=== PATIENT | male | born 1950 | race Caucasian/White ===

== ENCOUNTER 2017-06-10 19:15 | Emergency (ER) | payer SELFPAY ==
[2017-06-10 19:23] VITALS: TEMP 98.2
--- NOTE | 2017-06-10 19:38 | EDPHY ---
HPI/HX/ROS/PE/MDM Narrative: CHIEF COMPLAINT: Left heel pain HPI: This is a 67-year-old male with a history of homelessness and chronic BLE edema who complains of left heel pain after tripping over a concrete block just prior to arrival. He denies other injury. He has been able to ambulate with some pain. REVIEW OF SYSTEMS: Aside from elements discussed in the HPI, a comprehensive 10-point review of systems was reviewed and is negative. PMH: Edema SOCIAL HISTORY: Homeless. PHYSICAL EXAM: General:Patient is alert, in no acute distress. Extremities: R foot: Chronic edema noted. Achilles tendon intact, non-tender. Tenderness to palpation present over posterior calcaneus. No crepitus. Neuro: Oriented x3. Normal motor function. Normal sensory function. ED Course: Study: X-ray of the left ankle Indication: ankle pain Results: X-ray of the left ankle was obtained. The results of the study are: normal The study was read by the radiologist, Dr. Aldridge. I viewed the images myself on the PACS system. - Data Points Imaging Results: Imaging Impressions Foot X-Ray 06/10/17 19:25 Impression: No evidence for acute fracture of the left ankle. Left Foot, 3 Views History: Pain and swelling after trauma. Findings: Degenerative change is seen in the first metatarsophalangeal joint. Enthesopathy is seen in the Achilles and plantar insertion of the calcaneus. No evidence for acute fracture or dislocation. No evidence for periarticular erosion. Impression: No evidence for acute osseous abnormality of the left foot. Ankle X-Ray 06/10/17 19:33 Impression: No evidence for acute fracture of the left ankle. Left Foot, 3 Views History: Pain and swelling after trauma. Findings: Degenerative change is seen in the first metatarsophalangeal joint. Enthesopathy is seen in the Achilles and plantar insertion of the calcaneus. No evidence for acute fracture or dislocation. No evidence for periarticular erosion. Impression: No evidence for acute osseous abnormality of the left foot. General Time Seen by Provider: 06/10/17 19:33 Initial Vital Signs: Initial Vital Signs Temperature (C) 36.8 C 06/10/17 19:17 Heart Rate 82 06/10/17 19:17 Respiratory Rate 18 06/10/17 19:17 Blood Pressure 183/99 H 06/10/17 19:17 O2 Sat (%) 95 06/10/17 19:17 O2 Delivery Mode Room Air Allergies/Adverse Reactions: No Known Allergies Allergy (Unverified 06/10/17 19:17) Home Medications: Medication Instructions Recorded NK [No Known Home Meds] 06/10/17 Departure - Departure Disposition: Home, Routine, Self-Care Clinical Impression: Heel pain Condition: Good Instructions: Heel Spur (ED) Additional Instructions: Rest, ice, elevation. Ibuprofen as directed. Referrals: NONE *PRIMARY CARE P,. [Primary Care Provider] - As per Instructions Report Scribed for: Trevor Art Report Scribed by: Fe Parsons Date of Report: 06/10/17 Time of Report: 19:38 Physician Review and Approval Statement: Portions of this note were transcribed by an ED scribe. I personally performed the history, physical exam, and medical decision making; and confirm the accuracy of the information in the transcribed note.
[2017-06-10] MEDS ORDERED: IBUPROFEN 600 MG TAB PO ONE ×2 (20:27→20:28)
[2017-06-10 20:40] VITALS: BP 174/95; PULSE 86; RESP 16; O2SAT 94
== END 2017-06-10 20:39 | disposition home or self-care (01) ==
DX: M79.605 Pain in left leg (principal)

== ENCOUNTER 2018-10-31 23:28 | Inpatient (IN) | payer OTHER ==
--- NOTE | 2018-10-31 23:37 | EDPHY ---
H & P Stated Complaint: Shortness of breath Time Seen by Provider: 10/31/18 23:32 HPI/ROS: HPI The patient presents with shortness of breath which has been present for the last 1 week and has been getting progressively worse, he is brought in by ambulance from outside of a grocery store. The patient has become so short of breath that now he cannot walk any distance because of his shortness of breath. He has not had a cough. He says that his mouth is very dry and this is making him short of breath. He has longstanding history of lower extremity edema, however he says for the last 2 weeks his left leg has been more red and swollen than usual. He notices that it is quite warm. He reports a mild amount of pain. He has not had any fevers or chills. He denies any injury of his leg. He also says for the last 2 or 3 days he has been incontinent of urine and is having a hard time making it to the bathroom. REVIEW OF SYSTEMS 10 systems were reviewed and negative with the exception of the elements mentioned in the history of present illness. 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 PHYSICAL General Appearance: Alert, no distress Eyes: Pupils equal and round no pallor or injection ENT, Mouth: Mucous membranes moist, posterior pharynx is diffusely erythematous without exudates Respiratory: There are no retractions, lungs are clear to auscultation, no wheezes heard Cardiovascular: Regular rate and rhythm Gastrointestinal: Abdomen is soft and non-tender, no masses, bowel sounds normal : Scrotum is enlarged, erythematous and excoriated Neurological: A&O, moves all extremities Skin: Warm and dry, no rashes Musculoskeletal: Neck is supple non tender Extremities: Left lower extremity is largely edematous throughout, erythematous , most significantly in his foot, heel, distal lower leg with patchy areas of erythema more proximally which extend all the way to his proximal thigh, right lower extremity is very edematous Psychiatric: Patient is oriented X 3, there is no agitation Source: Patient, EMS Exam Limitations: No limitations - Personal History Tetanus Vaccine Date: LESS THAN 10 YEARS - Medical/Surgical History Hx Asthma: No Hx Chronic Respiratory Disease: No Hx Diabetes: No Hx Cardiac Disease: No Hx Renal Disease: No Hx Cirrhosis: No Hx Alcoholism: No Hx HIV/AIDS: No Hx Splenectomy or Spleen Trauma: No Other PMH: DENIES - Social History Smoking Status: Never smoked Constitutional: Initial Vital Signs Temperature (C) 37.1 C 11/01/18 00:05 Heart Rate 85 11/01/18 00:05 Respiratory Rate 20 11/01/18 00:05 Blood Pressure 150/80 H 11/01/18 00:05 O2 Sat (%) 95 11/01/18 00:05 O2 Delivery Mode Nasal Cannula O2 (L/minute) 2 Allergies/Adverse Reactions: No Known Allergies Allergy (Unverified 11/01/18 00:05) Home Medications: Medication Instructions Recorded NK [No Known Home Meds] 06/10/17 Medical Decision Making - Diagnostics EKG Interpretation: EKG: Complete interpretation has been separately recorded in the [email or web address] archive. 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 Calcified subcarinal lymphadenopathy consistent with sequelae of old granulomatous disease, no pulmonary embolism, interpreted by direct Radiology. Chest x-ray two view shows no pulmonary edema, no cardiomegaly, no infiltrate, interpreted by me, radiology interpretation pending. Imaging: I viewed and interpreted images myself Differential Diagnosis: This is a 68-year-old man who is homeless with no significant past medical history except for lower extremity edema which he says he has had for the last 2 years which he attributes to his homelessness and being on his feet, brought in by ambulance for shortness of breath which is progressive for the last 1 week which is described as dyspnea on exertion. Now, the patient can only walk a few steps before he is short of breath. He usually uses crutches because of his extremity edema. Here, his vital signs are normal, he is tachypneic though not hypoxic, lungs sound clear, he does have a largely edematous left lower extremity which is warm and erythematous. Because of his shortness of breath and unilateral leg symptoms, I am concerned for pulmonary embolism. Patient had normal chest x-ray an EKG. D-dimer was very positive at 7. He does have a leukocytosis, hyponatremia. He underwent CT angiogram of his chest which was unremarkable for pulmonary embolism. Thus I suspect his symptoms are coming from infectious process of his left lower extremity which appears to be a diffuse and fairly extensive circumferential cellulitis. This could have led to fatigue causing his shortness of breath. Plan for treatment here with antibiotics. He does not have a fever or tachycardia, thus I do not believe he has sepsis. I have consulted with Dr. Jean-Baptiste of the hospitalist service who will admit the patient for further care. The patient may need further imaging of his extremity, however given he received contrast for CT angio I will not perform CT of his leg with contrast at this time. This can be performed during his hospitalization. - Data Points Laboratory Results: Laboratory Results 10/31/18 23:35 10/31/18 23:35 11/01/18 10/31/18 10/31/18 02:00 23:49 23:35 WBC RBC Hgb Hct MCV MCH MCHC RDW Plt Count MPV Neut % (Auto) Lymph % (Auto) [place] % (Auto) Eos % (Auto) Baso % (Auto) Nucleat RBC Rel Count Absolute Neuts (auto) Absolute Lymphs (auto) Absolute Monos (auto) Absolute Eos (auto) Absolute Basos (auto) Absolute Nucleated RBC Immature Gran % Seg Neutrophils % Band Neutrophils % Lymphocytes % Monocytes % Eosinophils % Basophils % Metamyelocytes % Myelocytes % Promyelocytes % Blast Cells % Immature Gran # Absolute Seg Neuts Absolute Band Neuts Absolute Lymphocytes Absolute Monocytes Absolute Eosinophils Absolute Basophils Absolute Metamyelocyte Absolute Myelocytes Absolute Promyelocytes Absolute Plasma Cells Nucleated RBCs Absolute Blast Cells Plasma Cells % Toxic Granulation Toxic Vacuolation Dohle Bodies Platelet Estimate D-Dimer Sodium 129 mEq/L L mEq/L (135-145) Potassium 3.4 mEq/L L mEq/L (3.5-5.2) Chloride 93 mEq/L L mEq/L (97-110) Carbon Dioxide 22 mEq/l mEq/l (22-31) Anion Gap 14 mEq/L mEq/L (6-14) BUN 28 mg/dL H mg/dL (7-23) Creatinine 1.3 mg/dL mg/dL (0.7-1.3) Estimated GFR 55 Glucose 135 mg/dL H mg/dL (70-100) Serum Osmolality 276 mosmo/kg L mosmo/kg (280-297) Calcium 7.9 mg/dL L mg/dL (8.5-10.4) POC Troponin I 0.01 ng/mL ng/mL (0.00-0.08) NT-Pro-B Natriuret Pep 190 pg/mL H pg/mL (0-125) 10/31/18 10/31/18 23:35 23:35 WBC 22.18 10^3/uL H 10^3/uL (3.80-9.50) RBC 4.83 10^6/uL 10^6/uL (4.40-6.38) Hgb 13.8 g/dL g/dL (13.7-17.5) Hct 39.5 % L % (40.0-51.0) MCV 81.8 fL fL (81.5-99.8) MCH 28.6 pg pg (27.9-34.1) MCHC 34.9 g/dL g/dL (32.4-36.7) RDW 13.4 % % (11.5-15.2) Plt Count 245 10^3/uL 10^3/uL (150-400) MPV 11.2 fL fL (8.7-11.7) Neut % (Auto) Not Reported Lymph % (Auto) Not Reported [place] % (Auto) Not Reported Eos % (Auto) Not Reported Baso % (Auto) Not Reported Nucleat RBC Rel Count Not Reported Absolute Neuts (auto) Not Reported Absolute Lymphs (auto) Not Reported Absolute Monos (auto) Not Reported Absolute Eos (auto) Not Reported Absolute Basos (auto) Not Reported Absolute Nucleated RBC Not Reported Immature Gran % Not Reported Seg Neutrophils % 94.0 % % Band Neutrophils % 0.0 % % Lymphocytes % 0.0 % % Monocytes % 6.0 % % Eosinophils % 0.0 % % Basophils % 0.0 % % Metamyelocytes % 0.0 % % Myelocytes % 0.0 % % Promyelocytes % 0.0 % % Blast Cells % 0.0 % % Immature Gran # Not Reported Absolute Seg Neuts 20.85 10^3/uL H 10^3/uL (1.70-6.50) Absolute Band Neuts 0.00 10^3/uL 10^3/uL (0.00-0.70) Absolute Lymphocytes 0.00 10^3/uL L 10^3/uL (1.00-3.00) Absolute Monocytes 1.33 10^3/uL H 10^3/uL (0.30-0.80) Absolute Eosinophils 0.00 10^3/uL L 10^3/uL (0.03-0.40) Absolute Basophils 0.00 10^3/uL L 10^3/uL (0.02-0.10) Absolute Metamyelocyte 0.00 10^3/mL 10^3/mL (0.00-0.00) Absolute Myelocytes 0.00 10^3/mL 10^3/mL (0.00-0.00) Absolute Promyelocytes 0.00 10^3/uL 10^3/uL (0.00-0.00) Absolute Plasma Cells 0.00 10^3/uL 10^3/uL (0.00-0.00) Nucleated RBCs 0 /100 WBC /100 WBC (0-0) Absolute Blast Cells 0.00 10^3/uL 10^3/uL (0.00-0.00) Plasma Cells % 0.0 % % Toxic Granulation PRESENT H Toxic Vacuolation PRESENT H Dohle Bodies PRESENT H Platelet Estimate ADEQUATE (ADEQ) D-Dimer 7.95 ug/mLFEU H ug/mLFEU (0.00-0.50) Sodium Potassium Chloride Carbon Dioxide Anion Gap BUN Creatinine Estimated GFR Glucose Serum Osmolality Calcium POC Troponin I NT-Pro-B Natriuret Pep Medications Given: Discontinued Medications Ceftriaxone Sodium/Dextrose (Rocephin 1 Gm (Premix)) 50 mls @ 100 mls/hr IV EDNOW ONE PRN Reason: Protocol Stop: 11/01/18 02:24 Last Admin: 11/01/18 02:10 Dose: 50 mls Sodium Chloride (Ns) 500 mls @ 1,000 mls/hr IV EDNOW ONE PRN Reason: Protocol Stop: 11/01/18 02:24 Last Admin: 11/01/18 02:08 Dose: 500 mls Potassium Chloride (Klor-Con) 40 meq PO ONCE ONE Stop: 11/01/18 02:44 Last Admin: 11/01/18 03:56 Dose: 40 meq Point of Care Test Results: Chemistry 10/31/18 23:49 POC Troponin I 0.01 ng/mL ng/mL (0.00-0.08) Departure - Departure Disposition: [facility] Clinical Impression: Cellulitis and abscess of left leg, Hyponatremia, Lower extremity edema, Homelessness Leukocytosis Qualifiers: Leukocytosis type: unspecified Qualified Code(s): D72.829 - Elevated white blood cell count, unspecified Condition: Fair
[2018-10-31 23:45] LABS: PLATELET COUNT 245 10^3/uL (150-400)
[2018-11-01] MEDS ORDERED: IOPAMIDOL (ISOVUE 370) 100 ML BTL IV ONE (00:25)
[2018-11-01] MEDS ORDERED: NS 500 ML IV ONE (01:55)
[2018-11-01] MEDS ORDERED: ACETAMINOPHEN 325 MG TAB PO PRN (02:20)
[2018-11-01] MEDS ORDERED: ONDANSETRON 4 MG/2 ML VIAL IVP PRN (02:20)
[2018-11-01] MEDS ORDERED: ONDANSETRON DISINTEGRATING 4 MG TAB PO PRN (02:20)
--- NOTE | 2018-11-01 02:35 | PDGENHP ---
History and Physical - Chief Complaint LLE redness - History of Present Illness 68 yo M w/ hx of chronic LE swelling presents with LLE redness. The patient tells me it has been progressively red for 2 weeks. It has also become hot and painful. Over the last day he has also felt somewhat short of breath. He denies medical problems aside from LE swelling. He does not take any medications. He is homeless and sleeps outside. His work-up in the ED is notable for leukocytosis. A CTPE was performed due to elevated D-dimer but this was negative for pulmonary disease. He is not displaying sepsis physiology at this time. He is being admitted for IV antibiotics. Case discussed with ED physician Dr. Hagan; records reviewed and summarized above. History Information - Allergies/Home Medication List Allergies/Adverse Reactions: No Known Allergies Allergy (Unverified 11/01/18 00:05) Home Medications: NK [No Known Home Meds] 06/10/17 [Last Taken Unknown] I have personally reviewed and updated: family history, medical history - Past Medical History Additional medical history: Chronic leg swelling - Surgical History Reports: no pertinent surgical hx - Family History Positive for: diabetes type II - Social History Smoking Status: Never smoked Review of Systems Review of Systems: ROS: 10pt was reviewed & negative except for what was stated in HPI & below Physical Exam Physical Exam: Temp Pulse Resp BP Pulse Ox 37.1 C 80 20 135/74 H 97 11/01/18 00:05 11/01/18 02:20 11/01/18 00:50 11/01/18 02:20 11/01/18 02:20 O2 (L/minute) 2 Constitutional: obese, unkempt Eyes: PERRL, anicteric sclera Ears, Nose, Mouth, Throat: moist mucous membranes, ears appear normal Cardiovascular: regular rate and rhythym, no murmur, rub, or gallop, edema ( Bilateral, 3+) Respiratory: no respiratory distress, clear to auscultation Gastrointestinal: normoactive bowel sounds, soft, non-tender abdomen Skin: erythema (LLE), other (Hot, tender LLE, onychomycotic nails) Musculoskeletal: full muscle strength, muscular tenderness (LLE) Neurologic: AAOx3, CN II-XII Intact Psychiatric: interacting appropriately, not anxious Lab Data & Imaging Review 10/31/18 23:35 10/31/18 23:35 WBC 22.18 10^3/uL (3.80-9.50) H 10/31/18 23:35 RBC 4.83 10^6/uL (4.40-6.38) 10/31/18 23:35 Hgb 13.8 g/dL (13.7-17.5) 10/31/18 23:35 Hct 39.5 % (40.0-51.0) L 10/31/18 23:35 MCV 81.8 fL (81.5-99.8) 10/31/18 23:35 MCH 28.6 pg (27.9-34.1) 10/31/18 23:35 MCHC 34.9 g/dL (32.4-36.7) 10/31/18 23:35 RDW 13.4 % (11.5-15.2) 10/31/18 23:35 Plt Count 245 10^3/uL (150-400) 10/31/18 23:35 MPV 11.2 fL (8.7-11.7) 10/31/18 23:35 Neut % (Auto) Not Reported 10/31/18 23:35 Lymph % (Auto) Not Reported 10/31/18 23:35 [place] % (Auto) Not Reported 10/31/18 23:35 Eos % (Auto) Not Reported 10/31/18 23:35 Baso % (Auto) Not Reported 10/31/18 23:35 Nucleat RBC Rel Count Not Reported 10/31/18 23:35 Absolute Neuts (auto) Not Reported 10/31/18 23:35 Absolute Lymphs (auto) Not Reported 10/31/18 23:35 Absolute Monos (auto) Not Reported 10/31/18 23:35 Absolute Eos (auto) Not Reported 10/31/18 23:35 Absolute Basos (auto) Not Reported 10/31/18 23:35 Absolute Nucleated RBC Not Reported 10/31/18 23:35 Immature Gran % Not Reported 10/31/18 23:35 Seg Neutrophils % 94.0 % 10/31/18 23:35 Band Neutrophils % 0.0 % 10/31/18 23:35 Lymphocytes % 0.0 % 10/31/18 23:35 Monocytes % 6.0 % 10/31/18 23:35 Eosinophils % 0.0 % 10/31/18 23:35 Basophils % 0.0 % 10/31/18 23:35 Metamyelocytes % 0.0 % 10/31/18 23:35 Myelocytes % 0.0 % 10/31/18 23:35 Promyelocytes % 0.0 % 10/31/18 23:35 Blast Cells % 0.0 % 10/31/18 23:35 Immature Gran # Not Reported 10/31/18 23:35 Absolute Seg Neuts 20.85 10^3/uL (1.70-6.50) H 10/31/18 23:35 Absolute Band Neuts 0.00 10^3/uL (0.00-0.70) 10/31/18 23:35 Absolute Lymphocytes 0.00 10^3/uL (1.00-3.00) L 10/31/18 23:35 Absolute Monocytes 1.33 10^3/uL (0.30-0.80) H 10/31/18:35 Absolute Eosinophils 0.00 10^3/uL (0.03-0.40) L 10/31/18 23:35 Absolute Basophils 0.00 10^3/uL (0.02-0.10) L 10/31/18 23:35 Absolute Metamyelocyte 0.00 10^3/mL (0.00-0.00) 10/31/18 23:35 Absolute Myelocytes 0.00 10^3/mL (0.00-0.00) 10/31/18: Absolute Promyelocytes 0.00 10^3/uL (0.00-0.00) 10/31/18: Absolute Plasma Cells 0.00 10^3/uL (0.00-0.00) 10/31/18 23:35 Nucleated RBCs 0 /100 WBC (0-0) 10/31/18:35 Absolute Blast Cells 0.00 10^3/uL (0.00-0.00) 10/31/18:35 Plasma Cells % 0.0 % 10/31/18 23:35 Toxic Granulation PRESENT H 10/31/18 23:35 Toxic Vacuolation PRESENT H 10/31/18 23:35 Dohle Bodies PRESENT H 10/31/18 23:35 Platelet Estimate ADEQUATE (ADEQ) 10/31/18 23:35 D-Dimer 7.95 ug/mLFEU (0.00-0.50) H 10/31/18 23:35 Sodium 129 mEq/L (135-145) L 10/31/18 23:35 Potassium 3.4 mEq/L (3.5-5.2) L 10/31/18 23:35 Chloride 93 mEq/L (97-110) L 10/31/18 23:35 Carbon Dioxide 22 mEq/l (22-31) 10/31/18 23:35 Anion Gap 14 mEq/L (6-14) 10/31/18 23:35 BUN 28 mg/dL (7-23) H 10/31/18 23:35 Creatinine 1.3 mg/dL (0.7-1.3) 10/31/18 23:35 Estimated GFR 55 10/31/18 23:35 Glucose 135 mg/dL (70-100) H 10/31/18 23:35 Calcium 7.9 mg/dL (8.5-10.4) L 10/31/18 23:35 POC Troponin I 0.01 ng/mL (0.00-0.08) 10/31/18 23:49 NT-Pro-B Natriuret Pep 190 pg/mL (0-125) H 10/31/18 23:35 Assessment & Plan Assessment: 68 yo M w/ hx of chronic leg swelling presents with LLE cellulitis. Plan: 1. LLE cellulitis - I suspect this may have originated from onychomycotic nails ; I do not see a discrete wound. WBC of 22 on admission but no additional evidence of sepsis physiology. - Cefazolin 2 g IV q8h - Blood cultures ordered - Wound care consult - Elevate extremity as able 2. Chronic LE swelling - Patient tells me this has been present for 2 years. Normal heart size on imaging and BNP of 194 not suggestive of heart failure. - Will benefit from diuretics but will hold off initially noting acute infection 3. Scrotal erythema - Likely due to poor hygiene and occasional urinary incontinence. - Wound care consult placed 4. Hyponatremia - 129 on admission, possibly related to infection. - S/p NS bolus - Will check Osms, Mervat - Repeat BMP in the morning 5. Hypokalemia - Replete PRN Diet - Regular Code - Full Ppx - LMWH Dispo - Admit under observation status
[2018-11-01] MEDS ORDERED: POTASSIUM CL 20 MEQ TAB PO ONE (02:43)
[2018-11-01] MEDS: ceFAZolin 2 GM/DEXTROSE 100 ML IV SCH ×3 (05:23→21:53)
--- NOTE | 2018-11-01 06:36 | CPEKG ---
Test Reason : OPEN Blood Pressure : / mmHG Vent. Rate : 082 BPM Atrial Rate : 082 BPM P-R Int : 163 ms QRS Dur : 107 ms QT Int : 402 ms P-R-T Axes : 059 065 009 degrees QTc Int : 470 ms Sinus rhythm Confirmed by Jody Hagan ([id number]) on 11/01/2018 6:35:55 AM Referred By: Jody Hagan Confirmed By:Jody Hagan
[2018-11-01 09:29] LABS: PLATELET COUNT 240 10^3/uL (150-400)
[2018-11-01] MEDS: ENOXAPARIN 40 MG/0.4 ML SYR SC SCH (09:58)
--- NOTE | 2018-11-01 11:48 | ASMTCMCOM ---
CM Note CM Note Notes: CM met w/ pt and introduced self. Pt is a 68 y/o man admitted for left leg cellulitis. CM discussed case w/ Delilah Yepez NP. Pt reported that he has been homeless since 2014. He stayed in the custodial the first year he was homeless. 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 Pt reports that he sleeps outside and stays near the [facility] on [address]. Pt reports that he is a 'cisgendered male' that doesn't have any mental illness, disability or medical conditions prior to this incident. Pt doesn't plan on working / [facility] case management to find housing. Pt reported that it could take up to 10 years to find housing. CM can assist in making him a PCP follow up once he is closer to d/c. Pt is currently on ivabx. PT has been ordered and awaiting recommendations. Wound care is consulting. Needs are TBD at this time. CM to follow. Plan: TBD Date Signed: 11/01/2018 11:47 AM Electronically Signed By:ERASMO Borrego
--- NOTE | 2018-11-01 14:10 | HOSPPROG ---
Hospitalist Progress Note Assessment/Plan: 68 yo M w/ hx of chronic leg swelling presents with LLE cellulitis. Plan: 1. LLE cellulitis - WBC of 22 on admission but no additional evidence of sepsis physiology. - Cefazolin 2 g IV q8h - Blood cultures pending - Wound care consult - Elevate extremity as able 2. Chronic LE swelling - Normal heart size on imaging and BNP of 194 not suggestive of heart failure. - Will benefit from diuretics 3. Scrotal erythema - Likely due to poor hygiene and occasional urinary incontinence. - Wound care consult placed 4. Hyponatremia - 129 on admission, possibly related to infection. - S/p NS bolus - Will check Osms, Mervat - Repeat BMP in the morning 5. Hypokalemia - Replete PRN 6. Fever -supportive care -BC pending Diet - Regular Code - Full Ppx - LMWH Dispo - Admit under observation status Subjective: Feels tired. Ill. No new issues. Objective: Vital Signs Temp Pulse Resp BP Pulse Ox 37.4 C 80 24 H 130/71 H 93 11/01/18 11:11 11/01/18 11:11 11/01/18 11:11 11/01/18 11:11 11/01/18 11:11 Laboratory Results 11/01/18 09:11 11/01/18 09:11 10/31/18 11/01/18 11/02/18 05:59 05:59 05:59 Intake Total 400 Output Total 200 Balance 200 - Physical Exam Constitutional: chronically ill appearing, obese, uncomfortable Eyes: PERRL, anicteric sclera, EOMI Ears, Nose, Mouth, Throat: moist mucous membranes, hearing normal, ears appear normal Cardiovascular: regular rate and rhythym, edema, No JVD Respiratory: no respiratory distress, no rales or rhonchi, reduced air movement Gastrointestinal: normoactive bowel sounds, No tenderness, No ascites Skin: warm, erythema, fluctuance Musculoskeletal: normal joint ROM, no joint effusions, generalized weakness Neurologic: AAOx3 Psychiatric: not anxious, not encephalopathic, poor insight ICD10 Worksheet Patient Problems: Problems Problem Status Onset Cellulitis and abscess of left leg Acute Leukocytosis Acute Hyponatremia Acute Lower extremity edema Acute Homelessness Acute
--- NOTE | 2018-11-01 16:00 | WOCRNPDOC ---
WOCRN Advanced Assessment Note - Skin Integrity Problem, Advanced Assess Scrotum Dressing Type: Open to Air Closure Description: Approximated Eliud Wound Tissue: Erythema, Intact Wound Bed Color: Red Skin Integrity Problem Comment: Initial wound care consult sited scrotal drainage but skin, although red, appears to be intact. It appears that the moisture is coming from [id number]-xu-hald contact between the scrotum and bilateral upper thighs. Area cleaned with eliud-wipes by MINDA Davis and intradry sheets inserted bilaterally. An additional 2 intradry sheets placed in the patient's lock box in the room. Left Lower Leg Dressing Type: Open to Air, Other Other Dressing Type: chux absorbant pad Closure Description: Not Approximated Exudate Amount: Excessive Exudate Color: Clear, Yellow Exudate Characteristic(s): Serous Integumentary Issue Intervention: Dressing Applied, Dressing Initialed & Dated Elidu Wound Tissue: Erythema, Swollen, Weeping, Hemosiderin Staining, Taught Eliud Wound Swelling: Severe Skin Integrity Problem Comment: Patient here currently with cellulitis. Left leg extremely swollen and elevated on pillows. There is a large, nearly circumferential blister on the distal portion of the lower leg. A smaller blister on the posterior, distal left leg has a small opening and is draining serous fluid. Nursing has been capturing it on a chux pad until my visit. Small opening cleaned with NS and gauze. Large Exudry pad wrapped around distal portion of lower leg and wrapped with 2 Kerlix wraps. Anticipate that with antibiotics, swelling and drainage will decrease significantly. Patient would also benefit from a podiatry consult, or follow-up on an outpatient basis as the toenails on his left foot are long and growing back into the skin. Wound care will round early next week to reevaluate left lower leg.
[2018-11-01] MEDS ORDERED: NS 1,000 ML IV ONE (19:00)
[2018-11-02] MEDS: ceFAZolin 2 GM/DEXTROSE 100 ML IV SCH ×3 (05:54→22:03)
[2018-11-02] MEDS: ENOXAPARIN 40 MG/0.4 ML SYR SC SCH (08:26)
[2018-11-02] MEDS: FUROSEMIDE 20 MG/2 ML VIAL IVP SCH (08:27)
--- NOTE | 2018-11-02 10:25 | HOSPPROG ---
Hospitalist Progress Note Assessment/Plan: 68 yo M w/ hx of chronic leg swelling presents with LLE cellulitis. Plan: 1. LLE cellulitis - WBC of 22 on admission but no additional evidence of sepsis physiology. - Cefazolin 2 g IV q8h - Blood cultures NGTD - Wound care appreciated - Elevate extremity as able 2. Chronic LE swelling - Normal heart size on imaging and BNP of 194 not suggestive of heart failure. - Will benefit from diuretics -20mg IV lasix daily, will need to transition to PO 3. Scrotal erythema - Likely due to poor hygiene and occasional urinary incontinence. - Wound care consult placed 4. Hyponatremia - 129 on admission, possibly related to infection. - S/p NS bolus - Will check Osms, Mervat - Repeat BMP in the morning 5. Hypokalemia - Replete PRN 6. Fever -supportive care Diet - Regular Code - Full Ppx - LMWH Dispo - Change to inpt status requires cont IV abx and supportive care Subjective: Still not feeling well. Better then yesterday. Leg very painful whne standing up. Objective: Vital Signs Temp Pulse Resp BP Pulse Ox 36.9 C 78 18 131/64 H 93 11/02/18 06:53 11/02/18 06:53 11/02/18 06:53 11/02/18 06:53 11/02/18 06:53 Laboratory Results 11/01/18 09:11 11/01/18 09:11 11/01/18 11/02/18 11/03/18 05:59 05:59 05:59 Intake Total 400 200 Output Total 200 175 775 Balance 200 -265 -145 - Physical Exam Constitutional: appears nourished, chronically ill appearing, obese Eyes: PERRL, anicteric sclera, EOMI Ears, Nose, Mouth, Throat: moist mucous membranes, hearing normal, ears appear normal Cardiovascular: tachycardia, edema, No JVD Respiratory: no respiratory distress, no rales or rhonchi, reduced air movement Gastrointestinal: normoactive bowel sounds, No tenderness, No ascites Skin: warm, abrasion, erythema Musculoskeletal: no joint effusions, pain with ROM, generalized weakness Neurologic: AAOx3 Psychiatric: interacting appropriately, not anxious, not encephalopathic ICD10 Worksheet Patient Problems: Problems Problem Status Onset Cellulitis and abscess of left leg Acute Leukocytosis Acute Hyponatremia Acute Lower extremity edema Acute Homelessness Acute
--- NOTE | 2018-11-02 12:25 | PDMN ---
Medical Necessity Medical necessity: Change to IP, as of 11/02/18, per [employer] & MCG; los >2 mn for ongoing management of LLE cellulitis w/LE swelling, scrotal erythema & electrolyte abnormalities; requiring further monitoring, follow-up labs, IV abx , IV Lasix & Wound Care consult
[2018-11-03] MEDS: ceFAZolin 2 GM/DEXTROSE 100 ML IV SCH ×3 (05:43→21:35)
[2018-11-03] MEDS: ENOXAPARIN 40 MG/0.4 ML SYR SC SCH (09:31)
[2018-11-03] MEDS: FUROSEMIDE 20 MG/2 ML VIAL IVP SCH (09:32)
--- NOTE | 2018-11-03 09:56 | HOSPPROG ---
Hospitalist Progress Note Assessment/Plan: 68 yo M w/ hx of chronic leg swelling presents with LLE cellulitis. Plan: 1. LLE cellulitis - improvement - WBC of 22, now up to 31? no additional evidence of sepsis physiology. - Cefazolin 2 g IV q8h - Blood cultures NGTD - Wound care appreciated - Elevate extremity as able 2. Chronic LE swelling - Normal heart size on imaging and BNP of 194 not suggestive of heart failure. - Will benefit from diuretics -20mg IV lasix daily, will need to transition to PO 3. Scrotal erythema - Likely due to poor hygiene and occasional urinary incontinence. - Wound care consult placed - improving 4. Hyponatremia - 129 on admission, resolved possibly related to infection. - S/p NS bolus 5. Hypokalemia - Replete PRN 6. Fever -supportive care -resolved 7. Leukocytosis -increased WBC -? recheck labs in am -afebrile, improving -etiol? consider ID consult 8. Toe nails -podiatry consult needed Diet - Regular Code - Full Ppx - LMWH Dispo - Change to inpt status requires cont IV abx and supportive care Subjective: Up in chair. Feeling better. Thought process better. Objective: Vital Signs Temp Pulse Resp BP Pulse Ox 37.1 C 68 18 104/60 95 11/03/18 07:26 11/03/18 07:26 11/03/18 07:26 11/03/18 07:26 11/03/18 07:26 Laboratory Results 11/03/18 08:20 11/03/18 08:20 11/02/18 11/03/18 11/04/18 05:59 05:59 05:59 Intake Total 300 Output Total 1450 250 Balance -1150 -250 - Physical Exam Constitutional: appears nourished, chronically ill appearing, obese Eyes: PERRL, anicteric sclera Ears, Nose, Mouth, Throat: moist mucous membranes, hearing normal Cardiovascular: edema, No JVD Respiratory: no respiratory distress, reduced air movement Gastrointestinal: No tenderness, No ascites Skin: warm, abrasion, erythema Musculoskeletal: normal joint ROM, no joint effusions, generalized weakness Neurologic: AAOx3 Psychiatric: interacting appropriately, not anxious, not encephalopathic ICD10 Worksheet Patient Problems: Problems Problem Status Onset Cellulitis and abscess of left leg Acute Leukocytosis Acute Hyponatremia Acute Lower extremity edema Acute Homelessness Acute
[2018-11-03] MEDS: oxyCODONE IR 5 MG TAB PO PRN ×2 (11:35→17:58)
--- NOTE | 2018-11-03 15:59 | ASMTCMCOM ---
CM Note CM Note Notes: CM discussed case with hospitalist and RN, patient likely to be here for a little while and is receiving IV antibiotic treatment. PT recommending SNF Rehab, OT pending. CM spoke with patient, he does not have history working with a facility in the past. He denies any mental health diagnoses and is open to staying the minimum for SNF if it continues to be recommended at discharge. Patient shares he was living a good life, had a good routine and relationships prior to this infection. Nish shares he needs help with getting an ID, he was with the [facility] but shares they changed the system and can no longer get his mail there. He does receive $771.00 through SSI. Patient asks for confirmation that he has Medicare/Medicaid coverage prior to attempting placement, CM sent email/referral to [facility] with [facility]. CM to follow. D/C Plan: TBD Date Signed: 11/03/2018 03:58 PM Electronically Signed By:Sophie Payne
[2018-11-04] MEDS: ceFAZolin 2 GM/DEXTROSE 100 ML IV SCH ×3 (05:43→21:40)
--- NOTE | 2018-11-04 08:01 | WOCRNPDOC ---
WOCRN Advanced Assessment Note - Skin Integrity Problem, Advanced Assess Left Lower Leg Dressing Type: Super Absorbant Dressing Description: Clean/Dry, Intact Exudate Amount: Moderate Exudate Color: Clear, Yellow Exudate Characteristic(s): Serous Integumentary Issue Intervention: Visualized Under Dressing Cee Wound Tissue: Erythema, Erythema Marked by Wound supervisor mold shop Bed Constitution: De-roofed Serous Blister, Draining Serous Blister Skin Integrity Problem Comment: Large blister on lateral lower leg that has partially deroofed. Will update orders to Q2D changes to preserve remainder of roof, though it likely will not reattach at this time. Roof may need to be mechanically debrided in the next couple of days if it does not readhere. Wound care will follow.
[2018-11-04] MEDS: FUROSEMIDE 20 MG/2 ML VIAL IVP SCH (08:11)
[2018-11-04] MEDS: ENOXAPARIN 40 MG/0.4 ML SYR SC SCH (08:11)
--- NOTE | 2018-11-04 08:29 | HOSPPROG ---
Hospitalist Progress Note Assessment/Plan: Patient is a 68-year-old male with a history of chronic lower extremity swelling. He presented the emergency room with progressively redness to his left lower extremity for 2 weeks. 1st encounter chart reviewed * left lower extremity cellulitis -wound care is seeing the patient -on cephazolin 2 g IV Q 8 hr -blood cultures showed no growth -white blood cell count trending down * fevers with associated leukocytosis -no recent fever * chronic lower extremity swelling -on IV Lasix -quite severe in his left leg -will get an echo to reivew * scrotal erythema and redness -due to poor hygiene * hyponatremia -Na 131 -will follow * hypokalemia -mild *enlarged liver -reviewed CT scan w Dr Rowell -will check LFT's *homelessness -CM looking at options-possibly [facility] -Nish lost his job many years ago; had no savings or support so went to the street -no alcohol or drug use *plan: CM looking at options, 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 Appreciate Dr Rowell seeing him. Will get an echo due to the significant swelling Nish has. Subjective: Nish is wanting help with his leg and wants to feel better. Objective: Vital Signs Temp Pulse Resp BP Pulse Ox 36.5 C 64 20 114/79 98 11/04/18 08:00 11/04/18 08:00 11/04/18 08:00 11/04/18 08:00 11/04/18 08:00 Laboratory Results 11/04/18 08:19 11/03/18 08:20 11/03/18 11/04/18 11/05/18 05:59 05:59 05:59 Intake Total 300 Output Total 1450 700 100 Balance -1150 -700 -100 - Physical Exam Constitutional: chronically ill appearing, uncomfortable, unkempt Eyes: PERRL Ears, Nose, Mouth, Throat: hearing normal Cardiovascular: regular rate and rhythym Respiratory: no respiratory distress Gastrointestinal: normoactive bowel sounds, other (large and round) Genitourinary: other (scrotal area red, swollen) Skin: warm, other (left lower ext w pitting edema, left leg with redness, large yellow area of sluffing skin on the newman. Toenails blackened and curled (doesn' t have access to a home, shower)) Neurologic: AAOx3 Psychiatric: interacting appropriately ICD10 Worksheet Patient Problems: Problems Problem Status Onset Cellulitis and abscess of left leg Acute Homelessness Acute Hyponatremia Acute Leukocytosis Acute Lower extremity edema Acute
[2018-11-04] MEDS: oxyCODONE IR 5 MG TAB PO PRN (10:01)
--- NOTE | 2018-11-04 14:53 | ECHO ---
[email or web address] [address] [address] Main: [phone] Echocardiography Examination Transthoracic Name: WIL PERSAUD MR#: [id number] Study Date: 11/04/2018 Study Time: 11:50 AM Date of : 1950 Age: 68 year(s) Height: 172.7 cm (68 in.) Weight: 107.5 kg (237 lb.) BSA: 2.2 m2 Gender: Male Examination: Echo Contrast: Image Quality: Technically Difficult Rhythm: Heart Rate: BP: 96 mmHg/237 mmHg Indication: body edema, Shortness of breath Procedure Staff Referring Physician: Batch Dumper: Ginger Foy [facility] Reading Physician: Song Zapien MD Requesting Provider: Ordering Physician: Annia Pan Indication: body edema, Shortness of breath Measurements Chambers AV/MV Label Value Normal Value Label Value Normal Value LVOT Vmax 1.65 m/s (0.7m/s - 1.1m/s) AV PGmax 14 mmHg LVOTd 2 cm (1.9cm - 2.1cm) AV PGmean 8 mmHg LVOT VTI 33.5 cm (18cm - 22cm) AV Vmax 1.9 m/s LVDd, 2D 4.8 cm (4.2cm - 5.9cm) MATTI (Vmax) 2.7 cm2 LVDs, 2D 3.4 cm (2.1cm - 4cm) MATTI (VTI) 3.1 cm2 IVSd, 2D 1.2 cm (0.6cm - 1.1cm) MV E Vmax 0.8 m/s LVPWd, 2D 1.2 cm (0.6cm - 1cm) MV A Vmax 0.72 m/s LVEF, BP 62 % (55% - 70%) MV E/A 1.11 LVEF, 2D 57 % (54% - 74%) MV E/E' lateral 6 LVOT PGmean 7 mmHg MV E/E' septal 11 (0.45 - 1.25) LVOT Vmean 1.23 m/s MV DT 222 ms RVDd, 2D 3.5 cm (1.9cm - 3.8cm) MV E' septal 0.07 m/s LADs, 2D 3.7 cm (3cm - 4cm) MV PHT 0.06 s RA Area 15.6 cm2 MVA PHT 3.5 cm2 Additional Vessels MV E' lateral 0.13 m/s Label Value Normal Value MV E/E' mean 8 AoAsc 3.4 cm MV PHT 62 ms AoRoot, 2D 3.4 cm (1.4cm - 2.6cm) MV E' mean 0.1 m/s IVC 1.7 cm (1.2cm - 2.3cm) TV/PV Patient: WIL PERSAUD Study Date: 11/04/2018 Page 1 of 3 11:50 AM Label Value Normal Value PV PGmax 3 mmHg PV Vmax, Caliper 0.92 m/s (0.6m/s - 0.9m/s) Conclusions Left Ventricle: The EF is visually estimated to be 55 %. Mitral Valve: Mild mitral regurgitation. Tricuspid Valve: Trivial tricuspid regurgitation. Findings Left Ventricle: Left ventricle is normal in size. Normal global systolic left ventricular function. The EF is visually estimated to be 55 %. There is mild concentric left ventricular hypertrophy. There are no regional wall motion abnormalities. Right Ventricle: Normal size right ventricle. Right ventricular systolic function is normal. Left Atrium: The left atrium is normal in size. Right Atrium: The right atrium is normal in size. Mitral Valve: Mitral valve appears structurally normal. Mild mitral regurgitation. No mitral valve stenosis. Aortic Valve: Aortic leaflets are structurally normal. No significant aortic valve regurgitation. There is no aortic stenosis. There is aortic sclerosis present. Tricuspid Valve: Tricuspid valve leaflets are structurally normal. Trivial tricuspid regurgitation. Pulmonic Valve: Pulmonic valve not well visualized. Aorta: The aortic root size in 2D measures 3.4 cm. The ascending aorta measures 3.4 cm. Aorta Measurements AoRoot, 2D is 3.4 cm. IVC: The inferior vena cava is normal in size. Pericardium: No pericardial effusion. Exam Details Procedure Ordered: Echo Procedure Status: Routine study Image Quality: Technically Difficult Facility Location: Cardiac Echo 1 (No Signature Object) Patient: WIL PERSAUD Study Date: 11/04/2018 Page 2 of 3 11:50 AM Patient: WIL PERSAUD Study Date: 11/04/2018 Page 3 of 3 11:50 AM [id number]
--- NOTE | 2018-11-04 16:20 | ASMTCMCOM ---
CM Note CM Note Notes: Spoke with pt in the room. Pt has been homeless for several years, connected with [facility] but feels unsafe sleeping in the nursing home due to health concerns and therefore cannot obtain housing through nursing home system. Pt hoping for placement LT in a residential. [facility] looking into one possible LTC bed and [facility]. Pt needs 1-2 more days IV abx here in hospital before DC. CM to follow. D/C Plan: [facility] Date Signed: 11/04/2018 04:20 PM Electronically Signed By:Gisela Terry
--- NOTE | 2018-11-04 18:41 | GCON ---
[f rep st] CONSULTATION INPATIENT INFECTIOUS DISEASE CONSULTATION DATE OF CONSULTATION: 11/04/2018 REFERRING PHYSICIAN: Annia Pan NP REASON FOR REFERRAL: Left lower extremity severe cellulitis. HISTORY OF PRESENT ILLNESS: The patient is a 68-year-old male who has been homeless for the last 3 t o 4 years, living outside and rejecting any kind of senior care beds. The patient presented to [facility] Emergency Room on 10/31/2018, late in the evening, complaining of shortness of breath . Examination revealed an acutely swollen left leg that was red and warm. He was admitted for [facility] and started on IV cefazolin empirically. The patient's white blood cell count immanuel to 31,0 00 yesterday on 11/03/2018. He had a fever to 38.8 on the first day of his admission. Otherwise he is generally nontoxic. He has not had any subjective fevers or chills over the last couple of days. However, his left lower extremity remains significantly swollen and red. We are consulted to help g uide antibiotic therapy and to follow signs of improvement or concern. PAST MEDICAL HISTORY: Essentially negative. The patient has avoided medical care for the last numbe r of years. PAST SURGICAL HISTORY: Patient denies. ANTIBIOTICS: Cefazolin. ALLERGIES: The patient reports no known medical allergies. SOCIAL HISTORY: The patient has been homeless and living on the streets for 4 years. He denies any tobacco or alcohol use. Denies any drug use. 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 The patient lost his job an d then after that lost housing. He does receive Social Security as his only source of income. FAMILY HISTORY: Reviewed and noncontributory. REVIEW OF SYSTEMS: Other than that detailed above in the History of Present Illness, comprehensive 1 0-system review is negative. PHYSICAL EXAMINATION: VITAL SIGNS: Temperature maximum is 37.0. Temperature current is 36.7. Hear t rate is 63. Respiratory rate is 18. Blood pressure is 96/53. GENERAL: The patient is a well-for med, overweight, older male in no acute distress. He is mildly toxic in appearance. He is alert and oriented x3. He has a pleasant demeanor. HEENT: Normocephalic for age. Atraumatic. No scleral i cterus. No oral lesion or drainage from the nares. Eyes: Lids and conjunctivae are within normal l imits. Pupils are equal and round bilaterally. NECK: Supple. No meningismus. HEART: Regular rat e and rhythm. No murmur, rub, or gallop noted. The patient does have pedal edema on the right side, as well as the left. The left lower extremity is obviously significantly more swollen secondary to the acute infection, however. ABDOMEN: Soft, nontender. No masses. SKIN: Warm and dry to [facility]. No rash noted. Patient does have confluent erythema of the left lower extremity with an old def lated bulla on the anterior aspect of his mid newman. The leg is warm. There is no fluctuance. MUSCUL OSKELETAL: No other muscle belly tenderness is noted. No joint line effusion or arthritis is seen. NEURO: Cranial nerves 2 through 12 seem to be intact. Peripheral sensation is intact in extremitie s. LABORATORY DATA: The patient has a CBC dated 11/04/2018 that shows a white blood cell count of 26.0, hemoglobin of 12.4, hematocrit of 36.4, and platelet count of 412. Serum chemistries on 11/04/2018 show a normal total bilirubin of 0.9, AST of 43, ALT of 39. Total protein is low at 5.9. Albumin is low at 2.6. D-dimer on 10/31/2018 was elevated to 7.95. Lactic acid on 11/01/2018 was 1.8. MICROBIOLOGIC DATA: Patient has blood cultures dated 11/01/2018, which are no growth to date. RADIOLOGIC DATA: Patient has a chest CT angiogram dated 11/01/2018 that shows no evidence for pulmon clemente embolic disease. ASSESSMENT: Left lower extremity cellulitis, moderate to severe. No objective data indicating patho gen, although streptococci and staphylococci are at the top of the list. He is on cefazolin and his fevers have decreased, so I am not anxious to change his antibiotics empirically just because his whi te blood cell count has yet to respond. We will continue the cefazolin dose at present and follow hi s lab tests and appearance of the left lower extremity. PLAN: 1. Continue with current cefazolin dosing. 2. Agree with echocardiogram. 3. Follow the clinical appearance of his left lower extremity. /[id number]/MODL
[2018-11-05] MEDS: ceFAZolin 2 GM/DEXTROSE 100 ML IV SCH ×3 (05:17→22:28)
[2018-11-05] MEDS: oxyCODONE IR 5 MG TAB PO PRN ×2 (07:40→12:13)
--- NOTE | 2018-11-05 09:08 | PCMIDPN ---
Assessment/Plan: 1. Severe left lower extremity cellulitis in patient with chronic homelessness: Improving, albeit slowly. Large pretibial blister partially unroofed by me today; Gram stain and culture sent. Continue cefazolin as is given clinical improvement. Patient absolutely needs to take a shower daily, and told him that this is not negotiable! His left lower extremity is coated with dirt. Also told him that when he gets back in the bed, left lower extremity needs to be elevated above his heart, and explained logic behind this. He expressed understanding. Appreciate wound care assistance. Will also obtain lower extremity noninvasive to rule out underlying clot, although this seems less likely. Impressive leukocytosis is improving. Doubt underlying necrotizing fasciitis; no need for addition of clindamycin at this point. Also of note, he is not ready for discharge yet. 2. Miscellaneous: Given chronic homelessness, will obtain hepatitis a total antibody and vaccinate if not immune. He states he has never been HIV tested and is not sexually active in quite some time; therefore, 3rd generation HIV testing will suffice (ordered). Over 25 min spent with this patient today. 11/05/18 09:10 Subjective: Very loquacious. In chair, leg is not elevated. Says that pain is overall much better. Erythema has also improved per the patient. No diarrhea on the antibiotics. Objective: Cefazolin 2 g IV q.8 hours day 5 T-max 37.2 degrees Vital Signs Temp Pulse Resp BP Pulse Ox 36.7 C 64 16 106/61 95 11/05/18 07:32 11/05/18 07:32 11/05/18 07:32 11/05/18 08:40 11/05/18 07:32 Laboratory Results 11/04/18 08:19 11/03/18 08:20 11/04/18 11/05/18 11/06/18 05:59 05:59 05:59 Output Total 700 850 Balance -700 -850 Blood cultures on admission no growth - Physical Exam General Appearance: no apparent distress, obese EENT: pharynx normal, other (Edentulous), No thrush Respiratory: lungs clear Cardiac/Chest: regular rate, rhythm, No systolic murmur Extremities: other (Left lower extremity significantly swollen compared to the right. gnarled and overgrown toenails with significant onychomycosis bilaterally. No evidence of tinea pedis in web spaces of toes, however. Patient's left lower extremity is erythematous circumferentially, more prominent in the pretibial area with a large blister, that is partially flaccid. Was able to unroof part of this and obtain culture. Minimal discomfort/squeeze tenderness, appropriate for clinical exam. No hypesthesia. Lower extremity is coated with dirt.) ICD10 Worksheet Patient Problems: Problems Problem Status Onset Cellulitis and abscess of left leg Acute Homelessness Acute Hyponatremia Acute Leukocytosis Acute Lower extremity edema Acute
[2018-11-05] MEDS: FUROSEMIDE 20 MG/2 ML VIAL IVP SCH ×2 (09:38→15:04)
[2018-11-05] MEDS: ENOXAPARIN 40 MG/0.4 ML SYR SC SCH (09:49)
[2018-11-05 11:15] LABS: HEPATITIS A ANTIBODY TOTAL NEGATIVE (NEGATIVE); HIV TYPE 1 AND 2 NEGATIVE (NEGATIVE)
--- NOTE | 2018-11-05 14:12 | ASMTCMCOM ---
CM Note CM Note Notes: Pt has chosen to go to [facility] upon discharge. Updates sent to [facility] by case mgmt. Case Mgmt D/C plan: Case Mgmt will continue to follow. [facility] upon discharge in 1 - 2 days. Date Signed: 11/05/2018 02:11 PM Electronically Signed By:Beth Gerardo
--- NOTE | 2018-11-05 15:33 | HOSPPROG ---
Hospitalist Progress Note Assessment/Plan: Patient is a 68-year-old male with a history of chronic lower extremity swelling. He presented the emergency room with progressively redness to his left lower extremity for 2 weeks. * left lower extremity cellulitis -wound care is seeing the patient -on cephazolin 2 g IV Q 8 hr -blood cultures showed no growth -to get an ultrasound today * fevers with associated leukocytosis -no recent fever * chronic lower extremity swelling -on IV Lasix -quite severe in his left leg -reviewed echo findings w him * scrotal erythema and redness -due to poor hygiene * hyponatremia -Na 131 -will follow * hypokalemia -mild *enlarged liver -reviewed CT scan w Dr Rowell -will check LFT's *homelessness - has found several options for Nish to live *plan: get a chemistry panel while on lasix today and tomorrow. May only need another day or so of the lasix. Subjective: Nish is feeling better. Objective: Vital Signs Temp Pulse Resp BP Pulse Ox 37.0 C 73 18 130/70 H 97 11/05/18 15:10 11/05/18 15:10 11/05/18 15:10 11/05/18 15:10 11/05/18 15:10 Microbiology 11/05/18 09:00 Gram Stain - Final Leg - Swab Laboratory Results 11/04/18 08:19 11/03/18 08:20 11/04/18 11/05/18 11/06/18 05:59 05:59 05:59 Output Total 700 850 Balance -700 -850 - Physical Exam Constitutional: appears nourished, chronically ill appearing, obese Eyes: PERRL Ears, Nose, Mouth, Throat: hearing normal Respiratory: no respiratory distress Skin: warm, other (left lower ext cellulitis improving slowly; not as swollen, redness decreasing) Musculoskeletal: generalized weakness Neurologic: AAOx3 Psychiatric: interacting appropriately ICD10 Worksheet Patient Problems: Problems Problem Status Onset Cellulitis and abscess of left leg Acute Homelessness Acute Hyponatremia Acute Leukocytosis Acute Lower extremity edema Acute
[2018-11-05] MEDS ORDERED: IBUPROFEN 200 MG TAB PO PRN (15:39)
[2018-11-05] MEDS ORDERED: POTASSIUM CL 10 MEQ TAB PO ONE (16:40)
[2018-11-06] MEDS: ceFAZolin 2 GM/DEXTROSE 100 ML IV SCH ×3 (05:20→21:56)
[2018-11-06] MEDS: FUROSEMIDE 20 MG/2 ML VIAL IVP SCH (09:08)
[2018-11-06] MEDS: ENOXAPARIN 40 MG/0.4 ML SYR SC SCH (09:08)
--- NOTE | 2018-11-06 13:06 | PCMIDPN ---
Assessment/Plan: Assessment: 68-year-old man with left lower extremity cellulitis that is improving on antimicrobial therapy. No discernible side effects from. 1. Left lower extremity cellulitis without purulence, improved 2. Leukocytosis, improving 3. Nonimmune to hepatitis a virus 4. HIV negative 5. Chronic homelessness 6. Sepsis present on admission, resolved Plan: 1. Continue cefazolin 2. Anticipate transition to oral therapy at discharge 3. Plan hepatitis a vaccination prior to discharge 4. Reviewed in detail potential side effects of beta-lactam antibiotics to include: allergy, rash, nausea, antibiotic-associated diarrhea, Clostridioides difficile colitis. Porfirio Phelps MD Infectious Diseases 11/06/18 13:08 Subjective: No fever or chills in the past 24-hours. Tolerating oral diet with solids and liquids. No diarrhea, nausea, or other GI symptoms. No new rash. Appetite improving and nearly normal. Pain in left lower extremity is much improved. Improved since admission but not back to baseline health. Objective: Vital Signs Temp Pulse Resp BP Pulse Ox 36.6 C 64 16 125/66 H 97 11/06/18 12:13 11/06/18 12:13 11/06/18 12:13 11/06/18 12:13 11/06/18 12:13 Microbiology 11/05/18 09:00 Gram Stain - Final Leg - Swab Laboratory Results 11/04/18 08:19 11/06/18 05:12 11/05/18 11/06/18 11/07/18 05:59 05:59 05:59 Intake Total 2600 Output Total 850 2700 300 Balance -850 -100 -300 Medications Generic Name Dose Route Start Last Admin Trade Name Freq PRN Reason Stop Dose Admin Cefazolin Sodium/Dextrose 100 mls @ 200 mls/hr 11/01/18 06:00 11/06/18 05:20 Ancef IV 12/01/18 05:59 100 mls Q8HRS [facility] Protocol Microbiology 11/05/18 09:00 Leg - Swab Gram Stain - Final 11/01/18 02:49 Blood Blood Culture - Final 11/01/18 02:30 Blood Blood Culture - Final 11/05/18 09:00 Leg - Swab Wound Culture - Preliminary Laboratory Tests 10/31/18 11/01/18 11/01/18 23:35 09:11 09:11 WBC 21.27 H Hgb 12.9 L Plt Count 240 Absolute Seg Neuts 20.85 H 18.50 H Absolute Band Neuts 0.85 H Absolute Lymphocytes 0.00 L 0.85 L Creatinine 1.2 Total Protein Albumin Hepatitis A Ab Total HIV 1&2 Antibody 11/03/18 11/04/18 11/04/18 08:20 08:19 11:30 WBC 31.44 H 26.00 H Hgb 12.6 L 12.4 L Plt Count 391 412 H Absolute Seg Neuts Absolute Band Neuts Absolute Lymphocytes Creatinine Total Protein 5.9 L Albumin 2.6 L Hepatitis A Ab Total HIV 1&2 Antibody 11/04/18 11/06/18 11:30 05:12 WBC Hgb Plt Count Absolute Seg Neuts Absolute Band Neuts Absolute Lymphocytes Creatinine 0.9 Total Protein Albumin Hepatitis A Ab Total NEGATIVE HIV 1&2 Antibody NEGATIVE Ongoing monitoring for antimicrobial toxicity with: CBC, BMP, interval historical information, and interval physical exam. - Physical Exam General Appearance: no apparent distress, non-toxic EENT: No scleral icterus Respiratory: No respiratory distress, No accessory muscle use Neck: full range of motion, supple Extremities: other (No joint erythema or edema) Skin: other (Left lower extremity with erythema extending from the mid newman to the dorsum of the foot, anterior approximately 5-7 cm greatest diameter cutaneous blister, mild tenderness to palpation, wrinkling of the skin over the erythematous area) Neuro/Psych: alert, normal mood/affect, oriented x 3, No confused - Time Spent With Patient Time Spent with Patient: greater than 25 minutes Time Spent with Patient: Greater than 25 minutes spent on this patients care, greater than 50% of time spent counseling, educating, and coordinating care regarding the above mentioned plan. ICD10 Worksheet Patient Problems: Problems Problem Status Onset Cellulitis and abscess of left leg Acute Homelessness Acute Hyponatremia Acute Leukocytosis Acute Lower extremity edema Acute
--- NOTE | 2018-11-06 16:36 | HOSPPROG ---
Hospitalist Progress Note Assessment/Plan: Patient is a 68-year-old male with a history of chronic lower extremity swelling. He presented the emergency room with progressively redness to his left lower extremity for 2 weeks. * left lower extremity cellulitis -wound care is seeing the patient -on cefazolin 2 g IV Q 8 hr -blood cultures showed no growth * fevers with associated leukocytosis -no recent fever * chronic lower extremity swelling -on IV Lasix -quite severe in his left leg * scrotal erythema and redness -due to poor hygiene * hyponatremia -Na 132 -will follow * hypokalemia -mild *enlarged liver -stable *homelessness - has found several options for Peter to live *plan: DC to SNF when ok with ID May only need another day or so of the lasix. Subjective: Up in chair. Less pain today. Objective: Vital Signs Temp Pulse Resp BP Pulse Ox 36.4 C 64 18 133/72 H 99 11/06/18 15:33 11/06/18 15:33 11/06/18 15:33 11/06/18 15:33 11/06/18 15:33 Microbiology 11/05/18 09:00 Gram Stain - Final Leg - Swab Laboratory Results 11/04/18 08:19 11/06/18 05:12 11/05/18 11/06/18 11/07/18 05:59 05:59 05:59 Intake Total 2600 Output Total 850 2700 300 Balance -850 -100 -300 - Physical Exam Constitutional: chronically ill appearing, obese Eyes: PERRL, anicteric sclera Ears, Nose, Mouth, Throat: moist mucous membranes, hearing normal Cardiovascular: edema, No tachycardia Respiratory: no respiratory distress, clear to auscultation Gastrointestinal: normoactive bowel sounds, No ascites Skin: warm, erythema Musculoskeletal: no joint effusions, generalized weakness Neurologic: AAOx3 Psychiatric: not anxious, not encephalopathic ICD10 Worksheet Patient Problems: Problems Problem Status Onset Cellulitis and abscess of left leg Acute Homelessness Acute Hyponatremia Acute Leukocytosis Acute Lower extremity edema Acute
--- NOTE | 2018-11-06 22:46 | WOCRNPDOC ---
WOCRN Advanced Assessment Note - Skin Integrity Problem, Advanced Assess Left Lower Leg Dressing Type: Open to Air (Patient just out of shower) Closure Description: Not Approximated Exudate Amount: Minimal Exudate Color: Clear Exudate Characteristic(s): Serous Integumentary Issue Intervention: Dressing Applied, Dressing Initialed & Dated, Hydrogel Applied, Mechanical Debridement Cee Wound Tissue: Erythema, Swollen, Dry Wound Bed Color: Baltic, Red Wound Bed Constitution: Granulation Tissue, De-roofed Serous Blister Wound Edges: Attached, Well Defined Site Measurement - Head-to-Toe Length X Width X Depth (cm): 7x6x0.2 Skin Integrity Problem Comment: Patient just out of shower and laying in bed with left lower leg wound exposed. Wound now is a partially de-roofed serous blister. The roof of the blister is wet from the shower and with minimal mechanical debridement, I am able to remove it. The now open area looks good and healthy with minimal drainage. Wound gel applied to wound bed and covered with Mepilex foam and secured with miller and netting. Patient tolerated well. Wound care will round again early next week. Suprapubic Dressing Type: Open to Air Closure Description: Not Approximated Cee Wound Tissue: Intact Wound Bed Color: Red, Yellow Wound Bed Constitution: Red/Baltic - Non Granular Tissue, Mixed Loose & Adhered Slough/Eschar Wound Edges: Attached, Well Defined Site Measurement - Head-to-Toe Length X Width X Depth (cm): 0.5x5.0.3 Skin Integrity Problem Comment: This wound is in a skin fold above the pubis. Patient reports cleaning the area in the shower with some relief - "it doesn't hurt now". The folds of skin were pulled back to intertriginal dermatitis. I offered to take a picture to show the patient the wound but he refused because he wanted to "keep it positive". Instead, I recommended he clean the area in the shower daily and keep the area dry. Interdry sheet placed between skin folds. This wound is covered by nursing policy. Wound care will not continue to round. Please get wound care involved again if wound worsens.
[2018-11-07] MEDS: ceFAZolin 2 GM/DEXTROSE 100 ML IV SCH ×2 (05:52→13:44)
[2018-11-07] MEDS ORDERED: HEPATITIS A VIRUS VACCINE 1,440 UNIT/ML SYRINGE IM ONE (08:41)
[2018-11-07] MEDS: FUROSEMIDE 20 MG/2 ML VIAL IVP SCH (09:59)
[2018-11-07] MEDS: ENOXAPARIN 40 MG/0.4 ML SYR SC SCH ×2 (10:00→11:35)
--- NOTE | 2018-11-07 10:06 | PDIAF ---
- Diagnosis Diagnosis: cellulitis Code Status: Full Code - Medication Management Discharge Medications: electronically signed and located in the Home Medication List. PICC Care - Routine: N/A - Orders Services needed: Registered Nurse, Physical Therapy, Occupational Therapy Diet Recommendation: sodium restricted Additional Instructions: Wound Care: Dressing change for left lower leg every 3 days and PRN until healed. 1. Clean with NS and gauze or in shower with soap and water. 2. Cover open area with wound gel and then non-adherent non-bordered foam 3. Wrap area with kerlix or miller and cover with netting. Eri Clarke RN, Wound Care Team - Labs/Radiology BMP Date: 11/13/18 - Follow Up Care Current Providers and Referrals: Patient,NotPresent [Unknown] - As per Instructions
--- NOTE | 2018-11-07 10:34 | ASMTLACE ---
LACE Length of stay for Answers: 4-6 days current admission Acuity / Level of Answers: Yes Care: Did the patient have an inpatient admission? Comorbidities - select Answers: Chronic pulmonary disease all that apply Congestive heart failure Opioid dependence / Chronic pain # of Emergency department Answers: 1-2 visits in the last 6 months Social determinants Answers: Homelessness (street, prison) Score: 19 Date Signed: 11/07/2018 10:34 AM Electronically Signed By:Beth Gerardo
--- NOTE | 2018-11-07 11:05 | PCMIDPN ---
Assessment/Plan: Assessment: 68-year-old man with left lower extremity cellulitis that is improving on antimicrobial therapy. No discernible side effects from antibiotics. No GI intolerance or diarrhea to warrant concern about poor oral antibiotic absorption, will transition to oral therapy to complete treatment course sickly concerning his robust response antimicrobials to date. 1. Left lower extremity cellulitis without purulence, improved 2. Leukocytosis, improving 3. Nonimmune to hepatitis A virus 4. HIV negative 5. Chronic homelessness 6. Sepsis present on admission, resolved 7. MARKO present on admission; resolved Plan: 1. Continue cefazolin while inpatient 2. Change to Augmentin 875/125 BID at discharge to stop after doses on 11.09.18 3. Given 1st HAV vaccination today; Will require re-vaccination on/after 05.10.19 4. Reviewed in detail potential side effects of beta-lactam antibiotics to include: allergy, rash, nausea, antibiotic-associated diarrhea, Clostridioides difficile colitis. 5. Informed patient of negative HIV testing Porfirio Phelps MD Infectious Diseases 11/07/18 11:07 Subjective: No fever or chills in the past 24-hours. Tolerating oral diet with solids and liquids. No diarrhea, nausea, or other GI symptoms. No rash. Appetite normal. Ambulating in a limited degree due to significant lower extremity pain when the leg is in a dependent position. Overall he is much improved with lingering pain in left lower extremity limiting factor. Objective: Vital Signs Temp Pulse Resp BP Pulse Ox 36.7 C 72 16 102/74 96 11/07/18 08:07 11/07/18 03:50 11/07/18 08:07 11/07/18 08:07 11/07/18 08:07 Microbiology 11/05/18 09:00 Gram Stain - Final Leg - Swab Laboratory Results 11/04/18 08:19 11/06/18 05:12 11/06/18 11/07/18 11/08/18 05:59 05:59 05:59 Intake Total 2600 540 Output Total 2700 700 300 Balance -100 -160 -300 Medications Generic Name Dose Route Start Last Admin Trade Name Freq PRN Reason Stop Dose Admin Cefazolin Sodium/Dextrose 100 mls @ 200 mls/hr 11/01/18 06:00 11/07/18 05:52 Ancef IV 12/01/18 05:59 100 mls Q8HRS [facility] Protocol Microbiology 11/05/18 09:00 Leg - Swab Gram Stain - Final 11/01/18 02:49 Blood Blood Culture - Final 11/01/18 02:30 Blood Blood Culture - Final 11/05/18 09:00 Leg - Swab Wound Culture - Preliminary Laboratory Tests 11/01/18 11/01/18 11/03/18 09:11 09:11 08:20 WBC 21.27 H 31.44 H Hgb 12.9 L Plt Count 391 Creatinine 1.2 Hepatitis A Ab Total HIV 1&2 Antibody 11/03/18 11/04/18 11/04/18 08:20 08:19 11:30 WBC 26.00 H Hgb 12.4 L Plt Count 412 H Creatinine 1.1 Hepatitis A Ab Total NEGATIVE HIV 1&2 Antibody NEGATIVE 11/05/18 11/06/18 16:11 05:12 WBC Hgb Plt Count Creatinine 0.9 0.9 Hepatitis A Ab Total HIV 1&2 Antibody Ongoing monitoring for antimicrobial toxicity with: CBC, BMP, interval historical information, and interval physical exam. Discussed treatment/diagnostic testing and testing results with admitting provider(s). Personally reviewed interval laboratory results. - Physical Exam General Appearance: no apparent distress, non-toxic EENT: other (No conjunctival injection), No scleral icterus Respiratory: No respiratory distress, No accessory muscle use Neck: full range of motion, supple Extremities: No inflammation Skin: other (Erythema over distal left lower extremity continues to improve wrinkling of the skin, healthy skin under the removed blister over the anterior lower left lower extremity) Neuro/Psych: alert, normal mood/affect, oriented x 3, No confused ICD10 Worksheet Patient Problems: Problems Problem Status Onset Cellulitis and abscess of left leg Acute Homelessness Acute Hyponatremia Acute Leukocytosis Acute Lower extremity edema Acute
--- NOTE | 2018-11-07 11:13 | ASMTDCNOTE ---
Case Management Discharge Discharge Order Complete? Answers: Yes Patient to Obtain Answers: Other Notes: [facility] Transportation Arranged Answers: Other Notes: [facility] will Pick (Date 11/07/2018 03:00 PM & Time) Faxed Final Orders Answers: Yes Agency/Facility Transfer Answers: Yes Report Printed & Faxed to Receiving Agency Discharge Comments Notes: Discussed with [employer]. Final orders faxed. Ely at [facility] notified. RN to call report. Date Signed: 11/07/2018 11:12 AM Electronically Signed By:Samantha Dykes RN
--- NOTE | 2018-11-07 11:28 | ASDISCHSUM ---
Discharge Information Plan Status:SNF Medically Cleared to Leave: Discharge Date: D/C Disposition: ADT D/C Disposition:Assisted Facility Projected Discharge Date:11/07/2018 11:00 AM Transportation at D/C: Discharge Delay Reason: Follow-Up Date:11/07/2018 11:00 AM Discharge Slot: Final Diagnosis: Placement Information Referral Type:*Long Term/SNF Referral ID:[id number] Provider Name:[facility] Address 1:[address] Address 2: City:[place] Selection Factors: State:[place] Patient Contact Information Contact Name:ELIZABETH Relationship: Address: Home Phone: Work Phone: City: [facility] [place] Phone: [facility] Code: Email: Financial Information Financial Class:Medicare Primary Plan Desc:MEDICARE INPATIENT Primary Plan Number:[id number] Secondary Plan Desc: Secondary Plan Number: Assessment Information LACE LACE Length of stay for Answers: 4-6 days current admission Acuity / Level of Answers: Yes Care: Did the patient have an inpatient admission? Comorbidities - select Answers: Chronic pulmonary disease all that apply Congestive heart failure Opioid dependence / Chronic pain # of Emergency department Answers: 1-2 visits in the last 6 months Social determinants Answers: Homelessness (street, [facility]) Score: 19 Date Signed: 11/07/2018 10:34 AM Electronically Signed By:Beth Gerardo [facility] Progress Note CM Note CM Note Notes: CM met w/ pt and introduced self. Pt is a 68 y/o man admitted for left leg cellulitis. CM discussed case w/ Delilah Yepez NP. Pt reported that he has been homeless since 2015. [facility] first year he was [facility]. 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 Pt reports that he sleeps outside and stays near the [facility] on [address]. Pt reports that he is a 'cisgendered male' that doesn't have any mental illness, disability or medical conditions prior to this incident. Pt doesn't plan on working [facility] case management to find housing. Pt reported that it could take up to 10 years to find housing. CM can assist in making him a PCP follow up once he is closer to d/c. Pt is currently on ivabx. PT has been ordered and awaiting recommendations. Wound care is consulting. Needs are TBD at this time. CM to follow. Plan: TBD Date Signed: 11/01/2018 11:47 AM Electronically Signed By:ERASMO Borrego [facility] CM Progress Note CM Note CM Note Notes: CM discussed case with hospitalist and RN, patient likely to be here for a little while and is receiving IV antibiotic treatment. PT recommending SNF Rehab, OT pending. CM spoke with patient, he does not have history working with a facility in the past. He denies any mental health diagnoses and is open to staying the minimum for SNF if it continues to be recommended at discharge. Patient shares he was living a good life, had a good routine and relationships prior to this infection. Nish shares he needs help with getting an ID, he was with the [facility] but shares they changed the system and can no longer get his mail there. He does receive $771.00 through SSI. Patient asks for confirmation that he has Medicare/Medicaid coverage prior to attempting placement, CM sent email/referral to Harper with [facility]. CM to follow. D/C Plan: TBD Date Signed: 11/03/2018 03:58 PM Electronically Signed By:Sophie Payne [facility] CM Progress Note CM Note CM Note Notes: Spoke with pt in the room. Pt has been homeless for several years, connected with [facility] but feels unsafe sleeping in the [facility] due to health concerns and therefore cannot obtain housing through [facility] system. Pt hoping for placement LT in a shelter. [facility] is looking into one possible LTC bed and Colton Oglesby has accepted. Pt needs 1-2 more days IV abx here in hospital before DC. CM to follow. D/C Plan: [facility] SNF or [facility] Date Signed: 11/04/2018 04:20 PM Electronically Signed By:Gisela Terry [facility] CM Progress Note CM Note CM Note Notes: Pt has chosen to go to [facility] upon discharge. Updates sent to [facility] by case mgmt. Case Mgmt D/C plan: Case Mgmt will continue to follow. [facility] upon discharge in 1 - 2 days. Date Signed: 11/05/2018 02:11 PM Electronically Signed By:Beth Gerardo Case Management Discharge Plan Note Case Management Discharge Discharge Order Complete? Answers: Yes Patient to Obtain Answers: Other Notes: [facility] Medications Transportation Arranged Answers: Other Notes: [facility] Transport will Pick (Date 11/07/2018 03:00 PM & Time) Faxed Final Orders Answers: Yes Agency/Facility Transfer Answers: Yes Report Printed & Faxed to Receiving Agency Discharge Comments Notes: Discussed with [employer]PORATE SALES REPRESENTATIVE. Final orders faxed. Ely at [facility] notified. RN to call report. Date Signed: 11/07/2018 11:12 AM Electronically Signed By:Samantha Dykes RN Intervention Information Intervention Type:*Incorrect Registration Date of Service:11/01/2018 10:43 AM Patient Type:Inpatient Staff Member:MINDA Nielsen, Anna Hours: Discipline: Severity: Comment:
[2018-11-07 11:59] VITALS: BP 144/73
--- NOTE | 2018-11-07 13:56 | GDS ---
[f rep st] DISCHARGE SUMMARY DISCHARGE DIAGNOSES: 1. Left lower extremity cellulitis. 2. Chronic lower extremity edema. 3. Fever with associated leukocytosis. 4. Scrotal erythema with inflammation. 5. Hyponatremia. 6. Hypokalemia. 7. Enlarged liver. 8. Homelessness. CONSULTATIONS: Infectious Disease. STUDIES AND PROCEDURES: 1. CT angio of the chest. 2. Venous Doppler study. PHYSICAL EXAM: GENERAL: The patient is alert. VITAL SIGNS: Afebrile at 36.5, pulse 65, respirator y rate 20 and blood pressure is 144/73. He is saturating 95% on room air. I have seen evaluated the patient on the day of discharge. HOSPITAL COURSE: The patient is a 68-year-old homeless male who presented to the emergency room with complaints of left lower extremity swelling and redness. He was evaluated and diagnosed with. 1. Left lower extremity cellulitis. During this hospitalization, he was evaluated by Wound Care. H e was placed on cefazolin 2 g IV q.8h and did receive a consultation from Infectious Disease. Blood cultures demonstrated no bacteremia. His condition is significantly improved. He will continue outp atient Augmentin at the time of disposition. 2. Acute on chronic lower extremity edema. The patient did receive significant diuresis with IV Las ix during this hospitalization. His edema significantly improved. He will continue on oral Lasix at the time of disposition. 3. Fever with associated leukocytosis in the setting of acute infection and has resolved. 4. Scrotal erythema. This is secondary to the patient's poor hygiene. He did receive a consultatio n from Wound Care during this hospitalization and this condition is improved. 5. Hyponatremia. This is stable after hydration. 6. Hypokalemia. He did receive replacement. 7. Enlarged liver. LFTs are stable with no need for further evaluation at this time. 8. Homelessness. The patient will be discharged to a senior living facility for further therapy a nd treatment. DISPOSITION: I will discharge the patient to [facility] for further treatment and recommendations of wound care. There are no pending studies. DISCHARGE MEDICATIONS: Please refer to EMR form. The patient has new medications of Lasix 20 mg hadley ly, Augmentin 875 twice daily, ibuprofen, Lovenox, Tylenol. FOLLOWUP: Followup will be with [facility] in the outpatient setting. TIME SPENT WITH PATIENT: I spent greater than 35 minutes in the care, coordination, and management o f the patient's disposition. /[id number]/MODL
--- NOTE | 2018-11-12 13:31 | PQFORM ---
PHYSICIAN QUERY FORM Needs Your Response This query form is being sent to you to assure this patient record is coded properly. Please respond to the question below: INSULATION ENGINEMAN QUESTION: Dr Mccall Please verify diagnosis of Sepsis (Present on Admission) as documented by Dr Paulino in the progress notes but not mentioned in the Summary. Did this patient have Sepsis? __ Yes __ No __ Other (Please Specify __) _x_ Unable to determine Thank You Adrianne REAVES Budget Examiner INSTRUCTIONS FOR RESPONSE: Answer question by clicking on the "Edit Document" button. Move cursor to area below the stars. When complete, hit "Save." Click on the "Sign" button, then click "Sign" again. Type in your PIN and hit "Enter." MTDD
== END 2018-11-07 16:02 | DRG 603 ==
LOC: EDUNIT# → INTOOBSV 11-01 02:17 → F3E 11-01 03:07 → OBSVTOIN 11-02 10:26
PROVIDERS: ADMIT Student in an Organized Health Care Education/Training Program; ATTEND Student in an Organized Health Care Education/Training Program
DX: L03.116 Cellulitis of left lower limb (principal); E87.1 Hypo-osmolality and hyponatremia; E87.6 Hypokalemia; N50.89 Other specified disorders of the male genital organs; D72.829 Elevated white blood cell count, unspecified; R32 Unspecified urinary incontinence; R16.0 Hepatomegaly, not elsewhere classified; Z59.0 Homelessness
CPT/HCPCS: 84484-ER; 86708-90; 97161-GP; 97165-GO; 97530-GP; 97535-GO; G0378; J0690; J0696; J1650; J1940; Q9967